=== PATIENT | female | born 1990 | race Caucasian/White ===

== ENCOUNTER 2016-12-21 09:48 | Emergency (ER) | payer MEDICAID ==
[2016-12-21 10:29] LABS: BASOPHILS 0.4 % (0.0-2.0); EOSINOPHILS 2.1 % (0.0-6.0); EOSINOPHILS# 0.2 X 10^3uL (0.0-0.4); HEMATOCRIT 45.2 % (36.0-48.0); HEMOGLOBIN 15.9 g/dL (12.0-16.0); LYMPHOCYTES 19.6 % (20.0-40.0); LYMPHOCYTES# 1.5 X 10^3uL (0.8-3.8); MEAN CELL VOLUME 87.4 fL (80.0-100.0); MEAN CORPUS. HGB CONCENTRATION 35.1 g/dL (32.0-36.0); MEAN CORPUSCULAR HEMOGLOBIN 30.6 pg (29.0-35.0); MEAN PLATELET VOLUME 9.1 fL (7.4-10.4); MONOCYTES# 0.4 X 10^3uL (0.2-1.0); NEUTROPHILS 72.9 % (54.0-75.0); NEUTROPHILS# 5.7 X 10^3uL (2.6-6.7); PLATELET COUNT 220 X 10^3uL (130-440); RED BLOOD COUNT 5.18 X 10^6uL (4.20-6.10); RED CELL DISTRIBUTION WIDTH 11.8 % (11.5-14.5); WHITE BLOOD COUNT 7.8 X 10^3uL (3.9-10.7)
--- NOTE | 2016-12-21 10:36 | ER PHYSICIAN DOCUMENTATION ---
Physician Documentation [facility] Name:Maria Ines Call Age:26 yrs Sex:Female :1990 Arrival Date:12/21/2016 Time:09:48 BedTrauma-B Private MD: Sandip Holly Disposition: 12/21/16 10:25 Discharged to Home/Self Care. Impression: Generalized Seizure - : Hx of Generalized Seizures. - Condition is Good. - Discharge Instructions: SEIZURE, Recurrent [Adult]. - Medical Reconciliation form form. - Follow up: Yoel Anguiano MD; When: 12/28/2016; Reason: Recheck today's complaints, Continuance of care. - Problem is an acute exacerbation. - Symptoms are resolved. - Notes: Take Lamictal 50mg by mouth this morning. Increase your Lamictal dose to 150mg (1 1/2 tablets) by mouth every morning. Drink plenty of fluids. Rest. Follow up with Dr. Yoel Deleon at the [facility] on Sunday, December 25, 2016 at 12:15 PM. HPI: 12/21 09:55 This 26 yrs old Female presents to ER via Walk In with complaints of Probable cd Seizure. 09:55 The patient presents after having a single isolated seizure, that lasted an unknown cd period of time, after having a possible seizure episode, the episode(s) was witnessed, no one. Character of seizure(s): Loss of consciousness: it is not known if the patient experienced loss of consciousness, Motor activity: the motor activity is unknown, Incontinence: incontinent of bladder, Apnea: it is not know whether or not the patient experienced apnea, Circulation: it is unknown whether or not the patient experienced a disturbance in pulse, Eye movements: are unknown. Seizure onset: just prior to arrival. Context: the seizure(s) was witnessed, by no one, the downtime is unknown, occurred outdoors, occurred while the patient was walking. Seizure Hx: Last seizure: The patient's last seizure was approximately 2 week(s) ago, The patient has last seen Germaine NEVAREZ for a possible seizure in June 2016. She was started on Lamictal 100mg by mouth every day. She has tolerated it well and has not missed a dose.. Associated injury: The patient did not suffer any apparent associated injury. Current symptoms: Currently, the patient is not experiencing any symptoms, the patient feels back to baseline. The patient has experienced similar episodes in the past. Historical: - Allergies: PENICILLINS; CEPHALOSPORINS; - Home Meds: 1. Lamictal 100 mg oral tab 1 tab once daily for Epilepsy 2. BuSpar Oral Unknown daily 3. fluoxetine 20 mg oral tab 1 tab once daily in the morning 4. Topamax 100 mg oral tab 1 tab 2 times per day 5. metformin 500 mg oral tr24 1 tab once daily with the evening meal - PMHx: DEPRESSION; SEIZURES; PTSD; PCOS; - PSHx: wisdom teeth; bladder surgery; - Tetanus: < 10 years. - Ebola Screening: : Patient negative for fever greater than or equal to 101.5 degrees Fahrenheit, and additional compatible Ebola Virus Disease symptoms. Patient denies exposure to infectious person. Patient denies travel to an Ebola-affected area in the 21 days before illness onset. . - Immunization history: Flu Vaccine < 1 year. - Social history: Smoking status: Patient states was never smoker of tobacco. ROS: 10:20 Constitutional: Negative for chills, fever. cd 10:20 Cardiovascular: Negative for chest pain. 10:20 Respiratory: Negative for shortness of breath. 10:20 Abdomen/GI: Negative for abdominal pain, nausea, vomiting. 10:20 Neuro: Positive for seizure activity, Negative for altered mental status, dizziness, gait disturbance, headache, loss of consciousness, speech changes, syncope, tingling, visual changes, weakness. 10:20 All other systems are negative. Exam: 10:20 Head/Face: Normocephalic, atraumatic. cd Eyes: Pupils equal round and reactive to light, extra-ocular motions intact. Lids and lashes normal. Conjunctiva and sclera are non-icteric and not injected. Cornea within normal limits. Periorbital areas with no swelling, redness, or edema. ENT: Nares patent. No nasal discharge, no septal abnormalities noted. Tympanic membranes are normal and external auditory canals are clear. Oropharynx with no redness, swelling, or masses, exudates, or evidence of obstruction, uvula midline. Mucous membranes moist. Neck: Trachea midline, no thyromegaly or masses palpated, and no cervical lymphadenopathy. Supple, full range of motion without nuchal rigidity, or vertebral point tenderness. No Meningismus. Chest/axilla: Normal chest wall appearance and motion. Nontender with no deformity. No lesions are appreciated. Cardiovascular: Regular rate and rhythm with a normal S1 and S2. No gallops, murmurs, or rubs. Normal PMI, no JVD. No pulse deficits. Respiratory: Lungs have equal breath sounds bilaterally, clear to auscultation and percussion. No rales, rhonchi or wheezes noted. No increased work of breathing, no retractions or nasal flaring. Abdomen/GI: Soft, non-tender, with normal bowel sounds. No distension or tympany. No guarding or rebound. No evidence of tenderness throughout. Back: No spinal tenderness. No costovertebral tenderness. Full range of motion. Skin: Warm, dry with normal turgor. Normal color with no rashes, no lesions, and no evidence of cellulitis. MS/ Extremity: Pulses equal, no cyanosis. Neurovascular intact. Full, normal range of motion. 10:20 Neuro: Awake and alert, GCS 15, oriented to person, place, time, and situation. cd Cranial nerves II-XII grossly intact. Motor strength 5/5 in all extremities. Sensory grossly intact. Cerebellar exam normal. Normal gait. 10:20 Constitutional: The patient appears alert, awake, non-diaphoretic, non-toxic, well developed, well hydrated, well nourished, anxious, obese. 10:20 Neuro: Motor: is normal, moves all fours. Vital Signs: 09:50 BP 128 / 68; Pulse 99; Resp 16; Temp 97.5(O); Pulse Ox 96% on R/A; Weight 92.08 kg; lp Height 5 ft. 5 in. (165.10 cm); Pain 0/10; 10:00 BP 116 / 65 (auto/); lp 10:02 Pulse 102 MON; Resp 19; Pulse Ox 89% ; lp 10:27 Pulse 105 MON; Resp 18; Pulse Ox 95% ; lp 10:34 BP 113 / 60; Pulse 90; Resp 19; Pulse Ox 95% on R/A; Pain 0/10; sj 09:50 Body Mass Index 33.78 (92.08 kg, 165.10 cm) lp Caitlin Coma Score: 10:20 Eye Response: spontaneous(4). Verbal Response: oriented(5). Motor Response: obeys cd commands(6). Total: 15. MDM: 09:52 Patient medically screened. cd 10:00 Data interpreted: Pulse oximetry: on room air is 95 %. Interpretation: normal. cd 10:10 Neurological re-evaluation: normal neurological exam including cranial nerves, cd orientation, mentation, motor and sensory exam, cerebellar testing, GCS normal, and normal gait. Data reviewed: vital signs, nurses notes, old medical records, lab test result(s), and as a result, I will discharge patient, prescribe anticonvulsant, and increase her Lamictal dose to 150 mg by mouth every day. 10:20 Differential diagnosis: seizure, , Pseudo seizure, syncope. Counseling: I had a cd detailed discussion with the patient and/or guardian regarding: the historical points, exam findings, and any diagnostic results supporting the discharge/admit diagnosis, lab results, the need for outpatient follow up, for a recheck, for a referral to a specialist, a neurologist. Response to treatment: the patient's symptoms have resolved after treatment, the patient's condition has returned to base line, and as a result, I will discharge patient. 12/21 10:39 Order name: BASIC METABOLIC PANEL; Complete Time: 22:09 EDMS 12/22 22:09 Interpretation: Normal. 12/21 10:39 Order name: MAGNESIUM; Complete Time: 22:09 EDMS 12/22 22:09 Interpretation: Normal. 12/21 10:40 Order name: CBC AUTO DIF, MDIF/RMOR IF IND; Complete Time: 22:09 EDMS 12/23 00:22 Interpretation: Normal. 12/21 10:46 Order name: HCG, SERUM; Complete Time: 22:09 EDMS 12/22 22:09 Interpretation: Normal. cd Dispensed Medications: No medications were administered Signatures: Chrissy José RN RN Sandip Noriega MD MD cd Janzen, Sarah sj
--- NOTE | 2016-12-21 10:36 | ER NURSING DOCUMENTATION ---
Nurse's Notes [facility] Name:Maria Ines Call Age:26 yrs Sex:Female :1990 Arrival Date:12/21/2016 Time:09:48 BedTrauma-B Private MD: Diagnosis:Generalized Seizure-: Hx of Generalized Seizures Presentation: 12/21 09:50 Notified ED Physician of Dr. Jaramillo notified. lp 09:55 Presenting complaint: Patient states: Seizure on her way to work with loss of bladder. lp Transition of care: Home. 09:55 Acuity: CARLOS MANUEL 2 lp 09:55 Method Of Arrival: Walk In lp Triage Assessment: 10:22 General: Appears in no apparent distress, Behavior is appropriate for age. Pain: Denies lp pain. EENT: No deficits noted. Neuro: Level of Consciousness is awake, alert, Oriented to person, place, time, event, Candle Wrapper are equal bilaterally Moves all extremities. Gait is steady, Speech is normal, Facial symmetry appears normal, Pupils are PERRLA, Reports Seizure activity as she was walking to work. Cardiovascular: No deficits noted. Respiratory: No deficits noted. GI: No deficits noted. : No deficits noted. Historical: - Allergies: PENICILLINS; CEPHALOSPORINS; - Home Meds: 1. Lamictal 100 mg oral tab 1 tab once daily for Epilepsy 2. BuSpar Oral Unknown daily 3. fluoxetine 20 mg oral tab 1 tab once daily in the morning 4. Topamax 100 mg oral tab 1 tab 2 times per day 5. metformin 500 mg oral tr24 1 tab once daily with the evening meal - PMHx: DEPRESSION; SEIZURES; PTSD; PCOS; - PSHx: wisdom teeth; bladder surgery; - Tetanus: < 10 years. - Ebola Screening: : Patient negative for fever greater than or equal to 101.5 degrees Fahrenheit, and additional compatible Ebola Virus Disease symptoms. Patient denies exposure to infectious person. Patient denies travel to an Ebola-affected area in the 21 days before illness onset. . - Immunization history: Flu Vaccine < 1 year. - Social history: Smoking status: Patient states was never smoker of tobacco. Screenin:24 Infectious Disease Risk None. Abuse screen: Denies threats or abuse. Denies injuries lp from another. Nutritional screening: No deficits noted. Assessment: 10:24 Cardiovascular: Capillary refill < 3 seconds Heart tones S1 S2. Respiratory: Airway is lp patent Respiratory effort is even, unlabored, Respiratory pattern is regular. Vital Signs: 09:50 BP 128 / 68; Pulse 99; Resp 16; Temp 97.5(O); Pulse Ox 96% on R/A; Weight 92.08 kg; lp Height 5 ft. 5 in. (165.10 cm); Pain 0/10; 10:00 BP 116 / 65 (auto/); lp 10:02 Pulse 102 MON; Resp 19; Pulse Ox 89% ; lp 10:27 Pulse 105 MON; Resp 18; Pulse Ox 95% ; lp 10:34 BP 113 / 60; Pulse 90; Resp 19; Pulse Ox 95% on R/A; Pain 0/10; sj 09:50 Body Mass Index 33.78 (92.08 kg, 165.10 cm) lp Caitlin Coma Score: 10:20 Eye Response: spontaneous(4). Verbal Response: oriented(5). Motor Response: obeys cd commands(6). Total: 15. ED Course: 09:[address] Jaramillo notified. lp 09:51 Patient arrived in ED. lm3 09:52 Sandip Jaramillo MD is Attending Physician. cd 09:55 Chrissy José, RN is Primary Nurse. lp 09:56 Triage completed. lp 10:23 Yoel Anguiano MD is Referral Physician. cd 10:24 Valuables Remains with patient Patient has correct armband on for positive lp identification. Placed in gown. Bed in low position. Call light in reach. Seizure precautions initiated. Seizure pads on bed close monitoring by staff. Administered Medications: No medications were administered Outcome: 10:25 Discharge ordered by . cd 10:29 Discharged to home ambulatory. lp 10:29 Condition: stable 10:29 Instructed on discharge instructions, follow up and referral plans. medication usage. 10:35 Patient left the ED. sj 12/22 14:17 Discharge F/U Call: Spoke with: patient. Are you having any pain? no. How are you sj managing your pain? Did your discharge instructions answer all of your questions? yes Overall Care on a scale of 1-10 with 10 being the best care, you rate our care as: the rating of 10. What is the one thing you feel we could do to improve? Patient's answer: You guys were awesome! Signatures: Chrissy José, CAMMY RN Sandip Noriega MD MD cd Janzen, Sarah sj McKibbon-Moore, Lisa 3
[2016-12-21 10:37] LABS: BLOOD UREA NITROGEN 18 mg/dL (7-17); CALCIUM 9.7 mg/dL (8.4-10.2); CHLORIDE 105 mmol/L (98-107); CREATININE 0.8 mg/dL (0.5-1.0); EST GLOMERULAR FILTRATION RATE > 60 mL/min; GLUCOSE 95 mg/dL (70-100); MAGNESIUM 1.6 mg/dL (1.6-2.3); POTASSIUM 4.2 mmol/L (3.5-5.1); SODIUM 139 mmol/L (137-145)
== END 2016-12-21 10:36 | disposition home or self-care (01) ==
LOC: ER 09:48
DX: R56.9 Unspecified convulsions (principal); Z79.899 Other long term (current) drug therapy
CPT/HCPCS: 36415; 80048; 83735; 84703; 85025; 99281

== ENCOUNTER 2017-01-10 12:16 | Emergency (ER) | payer MEDICAID ==
[2017-01-10 13:18] LABS: BASOPHILS 0.6 % (0.0-2.0); EOSINOPHILS 1.2 % (0.0-6.0); EOSINOPHILS# 0.1 X 10^3uL (0.0-0.4); HEMATOCRIT 45.3 % (36.0-48.0); HEMOGLOBIN 15.9 g/dL (12.0-16.0); LYMPHOCYTES 25.1 % (20.0-40.0); LYMPHOCYTES# 1.6 X 10^3uL (0.8-3.8); MEAN CELL VOLUME 87.2 fL (80.0-100.0); MEAN CORPUSCULAR HEMOGLOBIN 30.5 pg (29.0-35.0); MEAN PLATELET VOLUME 9.4 fL (7.4-10.4); MONOCYTES 6.9 % (2.0-10.0); MONOCYTES# 0.5 X 10^3uL (0.2-1.0); NEUTROPHILS 66.2 % (54.0-75.0); NEUTROPHILS# 4.3 X 10^3uL (2.6-6.7); PLATELET COUNT 261 X 10^3uL (130-440); RED CELL DISTRIBUTION WIDTH 11.7 % (11.5-14.5); WHITE BLOOD COUNT 6.5 X 10^3uL (3.9-10.7)
[2017-01-10 13:32] LABS: A/G RATIO 1.3; ALBUMIN 4.4 g/dL (3.5-5.0); ALKALINE PHOSPHATASE 59 U/L (38-126); ALT 50 U/L (9-52); AST 27 U/L (14-36); BILIRUBIN, TOTAL 1.5 mg/dL (0.2-1.3); BLOOD UREA NITROGEN 12 mg/dL (7-17); CALCIUM 9.8 mg/dL (8.4-10.2); CHLORIDE 106 mmol/L (98-107); CREATININE 0.7 mg/dL (0.5-1.0); EST GLOMERULAR FILTRATION RATE > 60 mL/min; GLUCOSE 99 mg/dL (70-100); LIPASE 51 U/L (23-300); POTASSIUM 3.8 mmol/L (3.5-5.1); SODIUM 143 mmol/L (137-145); TOTAL PROTEIN 7.8 g/dL (6.3-8.2)
--- NOTE | 2017-01-10 14:13 | ER NURSING DOCUMENTATION ---
Nurse's Notes [facility] Name:Maria Ines Call Age:26 yrs Sex:Female :1990 Arrival Date:01/10/2017 Time:12:16 Bed3 Private MD:Holly [facility] Diagnosis:Abdominal Pain, Epigastric Presentation: 01/10 12:19 Presenting complaint: Patient states: Abdominal Pain. Transition of care: Home. lp 12:19 Acuity: CARLOS MANUEL 3 lp 12:19 Method Of Arrival: Private Vehicle lp Triage Assessment: 12:29 General: Appears in no apparent distress, Behavior is appropriate for age. Pain: lp Complains of pain in right upper quadrant and left upper quadrant Pain does not radiate. Pain currently is 2 out of 10 on a pain scale. Quality of pain is described as crampy, Pain began 1 hour ago. GI: Abdomen is non- distended obese, Bowel sounds present X 4 quads. 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 Lamictal 100 mg oral tab 1 tab once daily for Epilepsy 2. BuSpar Oral Unknown daily 3. fluoxetine 60 mg oral tab 1 tab once daily 4. Topamax 100 mg oral tab 1 tab 2 times per day 5. metformin 500 mg oral tr24 1 tab once daily with the evening meal - PMHx: DEPRESSION; SEIZURES; PTSD; PCOS; Generalized Seizure - : Hx of Generalized Seizures (December 21, 2016); - PSHx: wisdom teeth; bladder surgery; - Tetanus: < 10 years. - Ebola Screening: : Patient negative for fever greater than or equal to 101.5 degrees Fahrenheit, and additional compatible Ebola Virus Disease symptoms. Patient denies exposure to infectious person. Patient denies travel to an Ebola-affected area in the 21 days before illness onset. . - Immunization history: Flu Vaccine < 1 year. - Social history: Smoking status: Patient states was never smoker of tobacco. Screenin:31 Infectious Disease Risk None. Abuse screen: Denies threats or abuse. Denies injuries lp from another. Nutritional screening: No deficits noted. Assessment: 12:30 Cardiovascular: Capillary refill < 3 seconds Heart tones S1 S2. Respiratory: Breath lp sounds are clear bilaterally. GI: Abdomen is tender to palpation in epigastric area. GI: Abdomen is non- distended obese, Bowel sounds present X 4 quads. : No deficits noted. Vital Signs: 12:26 BP 132 / 69; Pulse 95; Resp 16; Temp 97.5; Pulse Ox 92% on R/A; Weight 90.72 kg; Height lp 5 ft. 5 in. (165.10 cm); Pain 2/10; 14:12 BP 118 / 67; Pulse 80; Resp 16; Pulse Ox 95% on R/A; lp 12:26 Body Mass Index 33.28 (90.72 kg, 165.10 cm) lp ED Course: 12:17 Patient arrived in ED. ds 12:18 [facility] is Private Physician. ds 12:19 Chrissy José, CAMMY is Primary Nurse. lp 12:20 Triage completed. lp 12:[address] Penaloza notified. lp 12:31 Valuables Remains with patient Patient has correct armband on for positive lp identification. Placed in gown. Bed in low position. Call light in reach. Side rails up X 1. 12:34 Jerardo Penaloza MD is Attending Physician. tl1 13:17 Patient moved to [facility]. mk 13:48 [facility] is Referral Physician. tl1 13:49 Patient moved back from [facility]. Administered Medications: 14:05 Drug: GI Cocktail w/o Donnatol - (Maalox Suspension 30 ml, Lidocaine Liquid 2 % 15 ml); lp Route: PO; 14:11 Follow up: Response: No change in condition; Medication administered at discharge. lp Point of Care Testing: Urine Dip: 13:13 pH: 5.0; ; Specific [place]: 1.030; Ketones: Negative; Glucose: Negative; Protein: lp Negative; Leukocytes: Negative; Nitrite: Negative ; Blood: Moderate (++); Bilirubin: Negative ; Urobilinogen: Normal Outcome: 13:48 Discharge ordered by . tl1 14:12 Discharged to home ambulatory. lp 14:12 Condition: good 14:12 Instructed on discharge instructions, follow up and referral plans. medication usage. 14:12 Patient left the ED. lp 01/11 13:39 Discharge F/U Call: Spoke with: patient. Are you having any pain? yes. Pain level is lb 6 / 10 How are you managing your pain? Patient is taking medication: prilosec Did your discharge instructions answer all of your questions? yes Have you made a f/u appointment? yes Overall Care on a scale of 1-10 with 10 being the best care, you rate our care as: the rating of 10. Further F/U necessary? None needed Signatures: Chrissy José, RN RN lp Srot, Awa, Reg Reg Ruth Ann Hall Tom, MD MD tl1 Nani Castano
--- NOTE | 2017-01-10 14:13 | ER PHYSICIAN DOCUMENTATION ---
Physician Documentation [facility] Name:Maria Ines Call Age:26 yrs Sex:Female :1990 Arrival Date:01/10/2017 Time:12:16 Bed3 Private MD:[facility]olly [facility] ED PhysicianJerardo Penaloza Disposition: 01/11 09:10 Chart complete. tl1 Disposition: 01/10/17 13:48 Discharged to Home/Self Care. Impression: Abdominal Pain, Epigastric. - Condition is Good. - Discharge Instructions: ABDOMINAL PAIN, Unknown Cause, (Female). - Medical Reconciliation form form. - Follow up: [facility]; When: 4- 6 days; Reason: Recheck today's complaints, Continuance of care. - Problem is new. - Symptoms have improved. - Notes: TRY BHUMISEJag HPI: 01/10 12:20 This 26 yrs old Female presents to ER via Private Vehicle with complaints of tl1 Abdominal Pain. 12:20 The patient presents with abdominal pain. Onset: The symptoms/episode began/occurred tl1 suddenly, 1 hour(s) ago. The symptoms do not radiate. Associated signs and symptoms: Pertinent positives: nausea, Pertinent negatives: blood in stools, constipation, diarrhea, dysuria, hematuria, vomiting. The symptoms are described as crampy, sharp. Modifying factors: The symptoms are alleviated by nothing, the symptoms are aggravated by nothing. Severity of pain: At its worst the pain was moderate in the emergency department the pain is unchanged. This patient does not have any risk factors related to abdominal pain. The patient has not experienced similar symptoms in the past. She denies alcohol use. She has not been sexually active for 3 months and her last 2 periods have been normal, with the last one starting 4 days ago. Did have bladder surgery at age 5 Denies f/c/s, change in bowel habits, urinary symptoms.. 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 Lamictal 100 mg oral tab 1 tab once daily for Epilepsy 2. BuSpar Oral Unknown daily 3. fluoxetine 60 mg oral tab 1 tab once daily 4. Topamax 100 mg oral tab 1 tab 2 times per day 5. metformin 500 mg oral tr24 1 tab once daily with the evening meal - PMHx: DEPRESSION; SEIZURES; PTSD; PCOS; Generalized Seizure - : Hx of Generalized Seizures (December 21, 2016); - PSHx: wisdom teeth; bladder surgery; - Tetanus: < 10 years. - Ebola Screening: : Patient negative for fever greater than or equal to 101.5 degrees Fahrenheit, and additional compatible Ebola Virus Disease symptoms. Patient denies exposure to infectious person. Patient denies travel to an Ebola-affected area in the 21 days before illness onset. . - Immunization history: Flu Vaccine < 1 year. - Social history: Smoking status: Patient states was never smoker of tobacco. ROS: 12:20 Abdomen/GI: Positive for abdominal pain. tl1 12:20 All other systems are negative. Exam: 12:20 Constitutional: The patient appears alert, awake, non-diaphoretic, non-toxic, well tl1 developed, well hydrated, well groomed, well nourished, uncomfortable. 12:20 Head/face: Exam is negative for acute changes. 12:20 ENT: Mouth: no acute changes, Oral mucosa: pink and intact, moist, Posterior pharynx: is normal. 12:20 Cardiovascular: Rate: normal, Rhythm: regular, Heart sounds: normal, normal S1and S2, Edema: is not appreciated, JVD: is not appreciated. 12:20 Respiratory: Respirations: normal, Breath sounds: are normal. 12:20 Abdomen/GI: Inspection: abdomen appears normal, Bowel sounds: diminished, Palpation: soft, mild abdominal tenderness, in the epigastric area, right upper quadrant and left upper quadrant, mass, is not appreciated, Liver: no appreciated palpable abnormalities. 12:20 Back: CVA tenderness, is absent. 12:20 : CVA tenderness, is absent. 12:20 Skin: Exam negative for acute changes. 12:20 Neuro: Exam negative for acute changes. Vital Signs: 12:26 BP 132 / 69; Pulse 95; Resp 16; Temp 97.5; Pulse Ox 92% on R/A; Weight 90.72 kg; Height lp 5 ft. 5 in. (165.10 cm); Pain 2/10; 14:12 BP 118 / 67; Pulse 80; Resp 16; Pulse Ox 95% on R/A; lp 12:26 Body Mass Index 33.28 (90.72 kg, 165.10 cm) lp MDM: 12:34 Patient medically screened. tl1 13:30 Differential diagnosis: cholecystitis, Cholelithiasis, gastritis, non-specific abd tl1 pain, pancreatitis, Peptic Ulcer Disease, Perf. Duodenal Ulcer, Perf. Gastric Ulcer. Data reviewed: vital signs, nurses notes, lab test result(s), radiologic studies, ultrasound, and as a result, I will discharge patient. Counseling: I had a detailed discussion with the patient and/or guardian regarding: the historical points, exam findings, and any diagnostic results supporting the discharge/admit diagnosis, lab results, radiology results, the need for outpatient follow up, to return to the emergency department if symptoms worsen or persist or if there are any questions or concerns that arise at home. Medication response: The patient's symptoms have improved. Response to treatment: the patient's symptoms have mildly improved after treatment, and as a result, I will discharge patient. 01/10 13:19 Order name: CBC AUTO DIF, MDIF/RMOR IF IND; Complete Time: 13:47 EDMS 01/10 13:47 Interpretation: Normal. tl1 01/10 13:33 Order name: COMPREHENSIVE METABOLIC PANEL; Complete Time: 13:47 EDMS 01/10 13:47 Interpretation: Normal. tl1 01/10 13:33 Order name: LIPASE; Complete Time: 13:47 EDMS 01/10 13:47 Interpretation: Normal: LIPASE 51. tl1 01/10 15:32 Order name: ABD LIMITED [id number]; Complete Time: 09:33 EDMS 06/ 09:33 Interpretation: Unremarkable. See radiologist report. tl1 Dispensed Medications: 14:05 Drug: GI Cocktail w/o Donnatol - (Maalox Suspension 30 ml, Lidocaine Liquid 2 % 15 ml); lp Route: PO; 14:11 Follow up: Response: No change in condition; Medication administered at discharge. lp Point of Care Testing: Urine Dip: 13:13 pH: 5.0; ; Specific [place]: 1.030; Ketones: Negative; Glucose: Negative; Protein: lp Negative; Leukocytes: Negative; Nitrite: Negative ; Blood: Moderate (++); Bilirubin: Negative ; Urobilinogen: Normal Signatures: Chrissy José RN RN lp Leigh, Tom, MD MD tl1
[2017-01-10] MEDS ORDERED: MAG-AL PLUS XS SUSP 30 ML UDC ONE (14:18)
[2017-01-10] MEDS ORDERED: LIDOCAINE VISCOUS 2% 15 ML UDC ONE (14:18)
--- NOTE | 2017-01-10 15:14 | US REPORT ---
REASON FOR EXAMINATION: Pain. FINDINGS: Emergent right upper quadrant ultrasound was performed. No prior study is available for comparison. The gallbladder and biliary tree appear unremarkable. No stones, wall thickening, duct dilatation or fluid collection is identified. Adjacent portions of the liver and right kidney appear unremarkable. Limited images of the pancreas are unremarkable. The abdominal aorta appears normal. IMPRESSION: Unremarkable emergent right upper quadrant ultrasound. MTDD
== END 2017-01-10 14:13 | disposition home or self-care (01) ==
LOC: ER 12:16
DX: R10.13 Epigastric pain (principal); R10.11 Right upper quadrant pain; R10.12 Left upper quadrant pain; R11.0 Nausea; Z79.899 Other long term (current) drug therapy
CPT/HCPCS: 76705; 80053; 83690; 85025